=== PATIENT | male | born 1940 | race Caucasian/White ===

== ENCOUNTER 2018-08-27 10:36 | Emergency (ER) | payer MEDICARE, OTHER ==
[~2018-08-27] VITALS: Ht 180.3 cm; Wt 101.2 kg
[~2018-08-27 10:36] MED LIST: ASPI81CH PO; ASPI81EC PO; ATOR10; BACPOLTO30 TP; CEPH500 PO; CYCL10 PO; Celebrex200 MG PO; FURO40; FURO40 PO; GLIP10 PO; GLIPIZIDE; HYDMOR2 PO; HYDMOR4 PO; INDO25 PO; LISI20 PO; LISI5 PO; METF500; METF500 PO; METO10 PO; METO5A PO; METTREX2.5 PO; NIAC500; Norco 5-325 Ta1 EACH PO; PANT40; PIOG30 PO; POTA10T; POTA10T PO; POTCHL10ER PO; PRAV20 PO; PRED10 PO; PRED20 PO; SUCR1 PO; SUMA25 PO; UNK MED; Ultram50 MG PO; Zithromax250 MG PO
[2018-08-27 12:00] LABS: BASOPHILS ABSOLUTE AUTO 0.03 K/mm3 (0.00-0.23); BASOPHILS PERCENT AUTO 0 % (0-2); EOSINOPHILS ABSOLUTE AUTO 0.09 K/mm3 (0.00-0.68); EOSINOPHILS PERCENT AUTO 1 % (0-6); Hematocrit 46.4 % (37.0-53.0); Hemoglobin 14.7 g/dL (13.5-17.5); IMMATURE GRAN ABSOLUTE AUTO 0.15 K/mm3 (0.00-0.10); IMMATURE GRAN PERCENT AUTO 1 % (0-1); LYMPHOCYTES ABSOLUTE AUTO 1.19 K/mm3 (0.84-5.20); LYMPHOCYTES PERCENT AUTO 10 % (21-46); MONOCYTES PERCENT AUTO 10 % (4-13); Mean Corpuscular HGB 30.4 pg (26.0-34.0); Mean Corpuscular HGB Conc 31.7 g/dL (31.5-36.5); Mean Corpuscular Volume 96 fL (80-100); Mean Platelet Volume 11.1 fL (9.1-12.4); NEUTROPHILS ABSOLUTE AUTO 8.96 K/mm3 (1.96-9.15); NEUTROPHILS PERCENT AUTO 78 % (41-73); Platelet Count 82 K/mm3 (150-400); RDW Coefficient Variation 14.2 % (11.7-14.2); RDW Standard Deviation 49.6 fL (35.1-46.3); Red Blood Cell Count 4.83 M/mm3 (4.30-5.90); White Blood Cell Count 11.52 K/mm3 (4.00-11.30)
[2018-08-27 12:37] LABS: Albumin, Blood 3.7 g/dL (3.4-5.0); Albumin/Globulin Ratio 0.8 (0.8-1.8); Bilirubin, Total 0.4 mg/dL (0.1-1.0); Bun/Creatinine Ratio 21.8 (12.0-20.0); Calcium, Blood 8.9 mg/dL (8.5-10.1); Creatinine, Blood 1.24 mg/dL (0.60-1.20); Globulin, Blood 4.4 g/dL (2.2-4.0); Potassium, Blood 4.4 mmol/L (3.5-5.5); Total Protein, Blood 8.1 g/dL (6.4-8.2)
[2018-08-27] MEDS ORDERED: AMOX250 PO (12:57)
[2018-08-27] MEDS ORDERED: Ultram50 MG PO (13:36)
== END 2018-08-27 13:44 | disposition home or self-care (01) ==
LOC: ER 10:36
PROVIDERS: Physician Assistant
DX: R51 Headache (principal); Z88.8 Allergy status to other drugs, medicaments and biological substances; Z88.5 Allergy status to narcotic agent; Z79.899 Other long term (current) drug therapy; Z79.84 Long term (current) use of oral hypoglycemic drugs; E11.9 Type 2 diabetes mellitus without complications; F17.210 Nicotine dependence, cigarettes, uncomplicated
CPT/HCPCS: 36415; 70450; 71046; 80053; 85025; 99284-25

== ENCOUNTER 2018-08-31 13:39 | Inpatient (IN) | payer MEDICARE, OTHER ==
[~2018-08-31] VITALS: Ht 180.3 cm; Wt 98.4 kg
[~2018-08-31 13:39] MED LIST changes: +AMOX250 PO
[2018-08-31 15:21] LABS: BASOPHILS ABSOLUTE AUTO 0.04 K/mm3 (0.00-0.23); BASOPHILS PERCENT AUTO 1 % (0-2); EOSINOPHILS ABSOLUTE AUTO 0.05 K/mm3 (0.00-0.68); EOSINOPHILS PERCENT AUTO 1 % (0-6); Hematocrit 44.1 % (37.0-53.0); Hemoglobin 14.1 g/dL (13.5-17.5); IMMATURE GRAN ABSOLUTE AUTO 0.19 K/mm3 (0.00-0.10); IMMATURE GRAN PERCENT AUTO 2 % (0-1); LYMPHOCYTES ABSOLUTE AUTO 0.96 K/mm3 (0.84-5.20); LYMPHOCYTES PERCENT AUTO 12 % (21-46); MONOCYTES ABSOLUTE AUTO 0.55 K/mm3 (0.16-1.47); MONOCYTES PERCENT AUTO 7 % (4-13); Mean Corpuscular HGB 30.2 pg (26.0-34.0); Mean Corpuscular Volume 94 fL (80-100); Mean Platelet Volume 11.3 fL (9.1-12.4); NEUTROPHILS ABSOLUTE AUTO 6.37 K/mm3 (1.96-9.15); NEUTROPHILS PERCENT AUTO 78 % (41-73); Platelet Count 56 K/mm3 (150-400); RDW Coefficient Variation 14.2 % (11.7-14.2); RDW Standard Deviation 49.2 fL (35.1-46.3); Red Blood Cell Count 4.67 M/mm3 (4.30-5.90); White Blood Cell Count 8.16 K/mm3 (4.00-11.30)
[2018-08-31 15:31] LABS: Troponin I 0.175 ng/mL (0.000-0.040)
[2018-08-31 15:42] LABS: Alanine Aminotransfer (ALT/SGP 17 U/L (12-78); Albumin, Blood 3.6 g/dL (3.4-5.0); Albumin/Globulin Ratio 0.9 (0.8-1.8); Alk Phos 44 U/L (50-136); Anion Gap 9 mmol/L (6-16); Aspartate Aminotrans (AST/SGOT 69 U/L (12-37); Bilirubin, Total 0.4 mg/dL (0.1-1.0); Blood Urea Nitrogen 26 mg/dL (8-24); Bun/Creatinine Ratio 22.2 (12.0-20.0); CO2, Blood 24 mmol/L (21-32); Calcium, Blood 8.7 mg/dL (8.5-10.1); Chloride, Blood 106 mmol/L (98-108); Creatinine, Blood 1.17 mg/dL (0.60-1.20); Globulin, Blood 4.2 g/dL (2.2-4.0); Glomerular Filtration Rate >60 (60-); Glucose, Blood 140 mg/dL (70-99); Potassium, Blood 4.9 mmol/L (3.5-5.5); Sodium, Blood 139 mmol/L (136-145); Total Protein, Blood 7.8 g/dL (6.4-8.2)
--- NOTE | 2018-09-01 01:25 | NUR ---
*LATE ENTRY* 1954 HRS - RECEIVED HANDOFF REPORT FROM ED NURSE REINA PT WAS DC'D ON THURSDAY, WENT HOME ON TRAMADOL. PT BACK TODAY WITH CHEST PAIN (TROPONINS 0.175), SOB, AND WHEEZING. HX OF DIABETES, KNEE REPLACEMENTS, AND CAD. PT CAME FROM HOME, IS A&O X4, SHOULD BE INDEPENDENT (BUT ED HAD NOT HAD HIM STAND FOR THEM). CT W/CONTRAST SHOWED MASSES IN LUNGS, MAY NEED POSSIBLE BIOPSY LATER. PT DENIES PAIN. PT IS A FULL CODE. PT IS ON RA, PT IS ON TELEMETRY.
--- NOTE | 2018-09-01 03:34 | NUR ---
SHIFT SUMMARY PT IS VENTRICULAR PACED 100% AT 90 BPM, MONITORED BY PCU TELEMETRY. ADMITTED FOR CHEST PAIN (RESOLVED), SOB, WHEEZING, TROPONIN LEVELS WERE 0.175. CT W/CONTRAST SHOWED MASSES IN THE LUNGS (POSSIBLE EVAL FOR BIOPSY?) AND ENLARGED LYMPH NODES. PT IS A&O X4, AND STANDBY ASSIST FOR ME (DIZZYNESS), ON RA. PT IS ACHS - MED SS. HX OF DIABETES, KNEE REPLACEMENTS, AND CAD. PT FELL 2 DAYS AGO AND HAS SUBSEQUENT NECK PAIN, HE IS REFUSING FENTANYL AND PREFERS TYLENOL IF POSSIBLE. PT IS ON THE ADA/CARDIAC DIET. PT IS ON PLAVIX RX.
[2018-09-01 06:19] LABS: BASOPHILS ABSOLUTE AUTO 0.04 K/mm3 (0.00-0.23); BASOPHILS PERCENT AUTO 1 % (0-2); EOSINOPHILS ABSOLUTE AUTO 0.12 K/mm3 (0.00-0.68); EOSINOPHILS PERCENT AUTO 1 % (0-6); Hematocrit 42.4 % (37.0-53.0); Hemoglobin 13.9 g/dL (13.5-17.5); IMMATURE GRAN ABSOLUTE AUTO 0.21 K/mm3 (0.00-0.10); IMMATURE GRAN PERCENT AUTO 3 % (0-1); LYMPHOCYTES ABSOLUTE AUTO 1.88 K/mm3 (0.84-5.20); LYMPHOCYTES PERCENT AUTO 23 % (21-46); MONOCYTES ABSOLUTE AUTO 0.91 K/mm3 (0.16-1.47); MONOCYTES PERCENT AUTO 11 % (4-13); Mean Corpuscular HGB 30.5 pg (26.0-34.0); Mean Corpuscular HGB Conc 32.8 g/dL (31.5-36.5); Mean Corpuscular Volume 93 fL (80-100); Mean Platelet Volume 11.5 fL (9.1-12.4); NEUTROPHILS ABSOLUTE AUTO 5.13 K/mm3 (1.96-9.15); NEUTROPHILS PERCENT AUTO 62 % (41-73); NRBC ABSOLUTE 0.02 K/mm3 (0.00-0.02); NRBC Auto 0.2 /100 WBC (0.0-0.2); RDW Coefficient Variation 14.3 % (11.7-14.2); RDW Standard Deviation 48.5 fL (35.1-46.3); Red Blood Cell Count 4.55 M/mm3 (4.30-5.90); White Blood Cell Count 8.29 K/mm3 (4.00-11.30)
[2018-09-01 06:22] LABS: Platelet Count 49 K/mm3 (150-400)
[2018-09-01 06:27] LABS: International Normalized Ratio 1.19; Prothrombin Time Results 12.4 Sec (9.7-11.5)
[2018-09-01 06:32] LABS: Alanine Aminotransfer (ALT/SGP 16 U/L (12-78); Albumin, Blood 3.5 g/dL (3.4-5.0); Albumin/Globulin Ratio 0.9 (0.8-1.8); Alk Phos 41 U/L (50-136); Anion Gap 10 mmol/L (6-16); Aspartate Aminotrans (AST/SGOT 71 U/L (12-37); Bilirubin, Total 0.4 mg/dL (0.1-1.0); Blood Urea Nitrogen 26 mg/dL (8-24); Bun/Creatinine Ratio 21.8 (12.0-20.0); CHOL/HDL RATIO 5.2; CO2, Blood 26 mmol/L (21-32); Calcium, Blood 8.6 mg/dL (8.5-10.1); Chloride, Blood 105 mmol/L (98-108); Cholesterol 150 mg/dL (50-200); Creatinine, Blood 1.19 mg/dL (0.60-1.20); Globulin, Blood 3.9 g/dL (2.2-4.0); Glomerular Filtration Rate >60 (60-); Glucose, Blood 118 mg/dL (70-99); HDL Cholesterol 29 mg/dL (>39); LDL/HDL RATIO 2.8; Low Density Lipoprotein Chol 82 mg/dL (0-110); Magnesium, Blood 1.4 mg/dL (1.6-2.4); Potassium, Blood 4.3 mmol/L (3.5-5.5); Sodium, Blood 141 mmol/L (136-145); Total Protein, Blood 7.4 g/dL (6.4-8.2); Triglycerides 193 mg/dL (30-160); Very Low Density Lipoprot Chol 38 mg/dL (6-32)
--- NOTE | 2018-09-01 06:37 | NUR ---
CRITICAL VALUE NOTIFICATION NOTIFIED NIGHT HOSPITALIST OF CRITICAL LOW LAB VALUE FOR PLATELETS OF 49, DOWN FROM 56. NO NEW ORDERS GIVEN. CHARGE NURSE STATED THAT THIS VALUE IS LESS CONCERNING LONG H&H ARE AT ACCEPTABLE LEVELS. HGB IS 13.9 AND HCT IS 42. PT IS ASYMPTOMATIC AT THIS TIME (NOT BLEEDING EXCESSIVELY FROM LAB DRAWS).
--- NOTE | 2018-09-01 11:10 | NUR ---
1100 PATIENT STATED HE NEEDED TO GO HOME AND TAKE CARE OF AILING . DOCTOR UNABLE TO SAFELY DISCHARGE PATIENT DUE TO TROP LEVELS. NURSE AND DOCTOR WENT OVER THE CONSEQUENCES OF PATIENT NOT STAYING IN HOSPITAL. PATIENT STATED HE WAS AWARE BUT IS REFUSING TO STAY. STATED HE WILL FOLLOW UP AFTER IS TAKEN CARE OF. PATIENT WAS PLEASANT BUT ADAMANT ABOUT LEAVING NOW. IV REMOVED, NO SS OF INFECTION NOTED. PATIENT DRESSED SELF AND CALLED FOR RIDE.
== END 2018-09-01 11:33 | disposition left against medical advice (07) | DRG 204 ==
LOC: ER 13:39 → MEDS 18:10
PROVIDERS: Physician Assistant; ADMIT Internal Medicine
DX: R06.00 Dyspnea, unspecified (principal); R07.89 Other chest pain; R01.1 Cardiac murmur, unspecified; E11.9 Type 2 diabetes mellitus without complications; F17.210 Nicotine dependence, cigarettes, uncomplicated; R74.8 Abnormal levels of other serum enzymes; R91.8 Other nonspecific abnormal finding of lung field; Z79.84 Long term (current) use of oral hypoglycemic drugs; I49.5 Sick sinus syndrome; Z95.0 Presence of cardiac pacemaker; M19.90 Unspecified osteoarthritis, unspecified site; Z96.653 Presence of artificial knee joint, bilateral; I35.0 Nonrheumatic aortic (valve) stenosis; E78.00 Pure hypercholesterolemia, unspecified
CPT/HCPCS: 36415; 71046; 71260; 72040; 72070; 80053; 80061; 82947; 83036; 83735; 84484; 85025; 85610; 93005; 93010; 93306; 99285-25; Q9967

== ENCOUNTER 2018-09-01 16:05 | Inpatient (IN) | payer MEDICARE, OTHER ==
[~2018-09-01] VITALS: Ht 180.3 cm; Wt 103.6 kg
[2018-09-01 17:46] LABS: BASOPHILS ABSOLUTE AUTO 0.02 K/mm3 (0.00-0.23); BASOPHILS PERCENT AUTO 0 % (0-2); EOSINOPHILS ABSOLUTE AUTO 0.12 K/mm3 (0.00-0.68); EOSINOPHILS PERCENT AUTO 1 % (0-6); Hematocrit 41.4 % (37.0-53.0); Hemoglobin 13.6 g/dL (13.5-17.5); IMMATURE GRAN ABSOLUTE AUTO 0.18 K/mm3 (0.00-0.10); IMMATURE GRAN PERCENT AUTO 2 % (0-1); LYMPHOCYTES ABSOLUTE AUTO 1.72 K/mm3 (0.84-5.20); LYMPHOCYTES PERCENT AUTO 21 % (21-46); MONOCYTES ABSOLUTE AUTO 0.98 K/mm3 (0.16-1.47); MONOCYTES PERCENT AUTO 12 % (4-13); Mean Corpuscular HGB 30.4 pg (26.0-34.0); Mean Corpuscular HGB Conc 32.9 g/dL (31.5-36.5); Mean Corpuscular Volume 93 fL (80-100); Mean Platelet Volume 11.7 fL (9.1-12.4); NEUTROPHILS ABSOLUTE AUTO 5.28 K/mm3 (1.96-9.15); NEUTROPHILS PERCENT AUTO 64 % (41-73); NRBC ABSOLUTE 0.02 K/mm3 (0.00-0.02); NRBC Auto 0.2 /100 WBC (0.0-0.2); Platelet Count 52 K/mm3 (150-400); RDW Coefficient Variation 14.1 % (11.7-14.2); RDW Standard Deviation 47.9 fL (35.1-46.3); Red Blood Cell Count 4.47 M/mm3 (4.30-5.90)
[2018-09-01 18:03] LABS: Albumin, Blood 3.5 g/dL (3.4-5.0); Albumin/Globulin Ratio 0.9 (0.8-1.8); Bilirubin, Total 0.4 mg/dL (0.1-1.0); Bun/Creatinine Ratio 21.8 (12.0-20.0); Calcium, Blood 8.8 mg/dL (8.5-10.1); Creatinine, Blood 1.24 mg/dL (0.60-1.20); Globulin, Blood 3.9 g/dL (2.2-4.0); Potassium, Blood 4.2 mmol/L (3.5-5.5); Total Protein, Blood 7.4 g/dL (6.4-8.2); Troponin I 0.173 ng/mL (0.000-0.040)
--- NOTE | 2018-09-01 21:30 | NUR ---
PCU ADMIT PT BROUGHT TO PCU RM 12 BY SHARA FROM THE ER @ APPROX 2110. PT SOB. LUNG SOUNDS COARSE W/ WHEEZE T/O. SPO2 > 92% ON 2L NC. PT UNSTEADY, 1 PERSON SBA. PT STATES HAVING FALLEN RECENTLY D/T DIZZINESS. PT ORIENTED TO ROOM. INSTRUCTED TO USE CALL LIGHT FOR STAFF ASSIST OUT OF BED. CALL LIGHT IN REACH. BED ALARM ON. WILL CONTINUE TO MONITOR AND PROVIDE CARE.
--- NOTE | 2018-09-02 01:01 | NUR ---
PAIN MEDICATION PT STATES 9 LEFT UPPER ABDOMINAL RIB PAIN AND STATES "I'VE HAD THIS PAIN FOR A LONG TIME." PT STATES NOT TAKING ANYTHING FOR PAIN, THOUGH HE STATES TAKING A TRAMADOL AT HOME THAT HE STATES MADE HIM DIZZY AND FALL AT HOME PRIOR TO ADMISSION. WHEN ASKED PT ABOUT LIST OF ALLERGY MEDS THAT ARE PAIN MEDICATIONS PT STATES HIS REACTIONS TO THESE MEDS TO BE "I PASS OUT" AND "YOU DON'T WANT TO BE AROUND ME, I GET STUPID." PT REQUESTING HYDROMORPHONE FOR PAIN. CALL TO MD SIDDIQUI ABOUT PT'S PAIN INQUIRY W/ ORDER FROM MD SIDDIQUI FOR 15 MG PO KETOROLAC X1 TO SEE HOW PT TOLERATES IT. THIS NURSE EXPLAINED TO THE PT THE MD'S ORDER FOR KETOROLAC INSTEAD OF HYDROMORPHONE. PT REFUSED THE KETOROLAC. WHEN ASKING THE PT WHAT OTHER MEDICATIONS THE PT MIGHT BE WILLING TO TAKE FOR HIS PAIN HE RESPONDED AGAIN WITH "HYDROMORPHONE." PT STATES "I'LL MAYBE TRY THE KETOROLAC TOMORROW." WILL CONTINUE TO MONITOR AND PROVIDE CARE.
[2018-09-02 02:08] LABS: BASOPHILS ABSOLUTE AUTO 0.04 K/mm3 (0.00-0.23); BASOPHILS PERCENT AUTO 1 % (0-2); EOSINOPHILS ABSOLUTE AUTO 0.12 K/mm3 (0.00-0.68); EOSINOPHILS PERCENT AUTO 1 % (0-6); Hematocrit 41.4 % (37.0-53.0); Hemoglobin 13.3 g/dL (13.5-17.5); IMMATURE GRAN ABSOLUTE AUTO 0.24 K/mm3 (0.00-0.10); IMMATURE GRAN PERCENT AUTO 3 % (0-1); LYMPHOCYTES ABSOLUTE AUTO 1.88 K/mm3 (0.84-5.20); LYMPHOCYTES PERCENT AUTO 22 % (21-46); MONOCYTES ABSOLUTE AUTO 1.09 K/mm3 (0.16-1.47); MONOCYTES PERCENT AUTO 13 % (4-13); Mean Corpuscular HGB Conc 32.1 g/dL (31.5-36.5); Mean Corpuscular Volume 94 fL (80-100); Mean Platelet Volume 11.6 fL (9.1-12.4); NEUTROPHILS ABSOLUTE AUTO 5.05 K/mm3 (1.96-9.15); NEUTROPHILS PERCENT AUTO 60 % (41-73); RDW Standard Deviation 47.9 fL (35.1-46.3); Red Blood Cell Count 4.43 M/mm3 (4.30-5.90); White Blood Cell Count 8.42 K/mm3 (4.00-11.30)
[2018-09-02 02:12] LABS: Platelet Count 48 K/mm3 (150-400)
[2018-09-02 02:14] LABS: Albumin, Blood 3.4 g/dL (3.4-5.0); Anion Gap 10 mmol/L (6-16); Blood Urea Nitrogen 29 mg/dL (8-24); Bun/Creatinine Ratio 23.6 (12.0-20.0); CO2, Blood 25 mmol/L (21-32); Calcium, Blood 8.6 mg/dL (8.5-10.1); Chloride, Blood 107 mmol/L (98-108); Creatinine, Blood 1.23 mg/dL (0.60-1.20); Glomerular Filtration Rate >60 (60-); Glucose, Blood 133 mg/dL (70-99); Phosphorus, Blood 4.3 mg/dL (2.5-4.9); Potassium, Blood 4.2 mmol/L (3.5-5.5); Sodium, Blood 142 mmol/L (136-145)
--- NOTE | 2018-09-02 05:51 | NUR ---
SHIFT SUMMARY PT A&O X4. PT ON BEDREST W/ BATHROOM PRIVILEGES. BED ALARM ON, PT HAS HX OF FALLS. PT 1 PERSON SBA, C/O DIZZINESS WHEN UP. PLATELET COUNT LOW. RESULTS SHARED W/ MD SIDDIQUI THIS SHIFT W/ NO ORDERS GIVEN. MONITOR SHOWS SR/ST W/ PVC'S. MURMUR NOTED. LUNG SOUNDS COARSE W/ WHEEZE T/O. SPO2 > 92% ON 2L NC. PT SOB W/ ACTIVITY. PT NPO FOR STRESS TEST THIS AM. PT C/O L RIB PAIN, REQUESTING HYDROMORPHONE. ALTERNATIVE PAIN MEDICATION ORDERED BY MD, PT REFUSING ALTERNATIVE PAIN MED. VSS. WILL CONTINUE TO MONITOR AND PROVIDE CARE UNTIL REPORT OFF TO DAY SHIFT RN.
--- NOTE | 2018-09-02 13:50 | NUR ---
DEVICE CHECK DONE PER ORDER TO EVALUATE VENTRICULAR PACING AND ATTEMPT TO MINIMIZE VENTRICULAR PACING. ADEQUATE BATTERY STATUS. NORMAL ATRIAL AND VENTRICULAR SENSING AND CAPTURE. PRESENTING RHYTHM IS AsVp RATE 92 BPM. WITH VARYING LENGTHS OF AV BLOCK. STABLE ATRIAL AND VENTRICULAR LEAD IMPEDANCES AT 608 OHMS IN THE ATRIUM AND 776 IN THE VENTRICLE. P WAVE 4.8mV. R WAVE >25 mV.STABLE ATRIAL CAPTURE THRESHOLD .9V@.4ms. STABLE VENTRICULAR CAPTURE THRESHOLD .7V@.4ms. HISTOGRAMS SHOW Ap<1% Injection Molding Operator 95%. AT/AF EPISODES: 73. NSVT EPISODES: 103. INFORMATION CALLED TO DR. SMITH.
--- NOTE | 2018-09-02 14:49 | NUR ---
Update: Pt returned to room from stress test now. Dr. López at bedside.
--- NOTE | 2018-09-02 16:29 | NUR ---
Shift Summary No acute changes since initial shift assessment. VSS. In no apparent sign of distress. Pt is A&Ox4. Calling appropriately. Denies any more pain t/o the shift. Dr. López in to see pt today as well as Dr. Love. Per Dr. Love, we will wait for plan from pulminology first before deciding if pt will need an angiogram. Plan is to biopsy lung mass tomorrow. Pt currently resting in bed with call light within reach. Denies any further questions, complaints or requests at this time. Will continue to monitor until report is given to nickie BARNES.
--- NOTE | 2018-09-02 19:05 | NUR ---
Per nursing request, I met with Mr. Devine. It was explained to me he had several tumors suspicious of cancer. He was evasive regarding possible cancer dx. 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 For the past few years he has been caring for his , and he is primarily concerned for her. He did admit he greatest fear is leaving her. First, because of his love for her, and second, because he has not made arrangements for her care if "something were to happend to me." Throughout our conversation, he would begin to express concern/fear and then emotionally pull back. I did not push and we moved easily between stories from his work-life and worries about the future. He is listed as Buddhism, but admits to me he finds meaning in all Gnosticism denominations. He has not been religiously active lately. Our visit was interuppted when he became uncomfortable in his chair and then a friend arrived to visit. Mr. Devine will certainly benefit from Palliative Care and guidence in coming days. He seems to be moving in and out of denial, which is quite normal and self-preserving at this early stage. Rn Plastics services will remain available.
--- NOTE | 2018-09-03 04:10 | NUR ---
SHIFT SUMMARY PT A&O X4, CALM AND COOPERATIVE W/ A FLAT AFFECT. WHEN DISCUSSING THE PT'S CURRENT HEALTH FINDINGS AND DIAGNOSTIC TESTING TO COME W/ THE BIOPSY, THE PT STATES "IT'S NOT CANCER." PT INTERMITTENTLY UNCOMFORTABLE, C/O HEADACHE THAT WENT AWAY W/OUT MEDICATION, L HIP PAIN THAT HE ATTRIBUTED TO "SITTING IN THE CHAIR TOO LONG", AND LOWER BACK AND NECK PAIN THAT HE STATED BEING "FROM THE BED." PT TX'D W/ MEDICATION PER EMAR, REPOSITIONING, AND BLANKETS FROM THE WARMER. MONITOR SHOWS SR/ST, HR 90'S-110. LUNG SOUNDS COARSE W/ RHONCHI. SPO2 > 92% ON RA OR 2L NC DURING SHIFT. ARGATROBAN CONTINUES TO INFUSE PER ORDERS. PT UNABLE TO SLEEP THIS MORNING, SITTING UP IN CHAIR WATCHING TELEVISION. WHEN ADDRESSING PT'S CONCERNS FOR HIS HE STATES HIS NEIGHBOR WILL BE CHECKING ON HER AND DENIES CONCERN FOR HER CARE AT THIS TIME, STATING "HOLLY IS A GOOD GIRL. SHE'LL TAKE CARE OF HER. HER THOMAS IS OFF WORK TODAY TOO." WILL CONTINUE TO MONITOR AND PROVIDE CARE UNTIL REPORT OFF TO DAY SHIFT RN.
[2018-09-03 04:49] LABS: BASOPHILS ABSOLUTE AUTO 0.02 K/mm3 (0.00-0.23); BASOPHILS PERCENT AUTO 0 % (0-2); EOSINOPHILS ABSOLUTE AUTO 0.07 K/mm3 (0.00-0.68); EOSINOPHILS PERCENT AUTO 1 % (0-6); Hematocrit 39.4 % (37.0-53.0); Hemoglobin 12.8 g/dL (13.5-17.5); IMMATURE GRAN ABSOLUTE AUTO 0.34 K/mm3 (0.00-0.10); IMMATURE GRAN PERCENT AUTO 3 % (0-1); LYMPHOCYTES ABSOLUTE AUTO 1.27 K/mm3 (0.84-5.20); LYMPHOCYTES PERCENT AUTO 10 % (21-46); MONOCYTES ABSOLUTE AUTO 1.15 K/mm3 (0.16-1.47); MONOCYTES PERCENT AUTO 9 % (4-13); Mean Corpuscular HGB 30.7 pg (26.0-34.0); Mean Corpuscular HGB Conc 32.5 g/dL (31.5-36.5); Mean Corpuscular Volume 95 fL (80-100); Mean Platelet Volume 11.8 fL (9.1-12.4); NEUTROPHILS ABSOLUTE AUTO 9.62 K/mm3 (1.96-9.15); NEUTROPHILS PERCENT AUTO 77 % (41-73); NRBC ABSOLUTE 0.02 K/mm3 (0.00-0.02); NRBC Auto 0.2 /100 WBC (0.0-0.2); RDW Coefficient Variation 14.2 % (11.7-14.2); RDW Standard Deviation 48.7 fL (35.1-46.3); Red Blood Cell Count 4.17 M/mm3 (4.30-5.90); White Blood Cell Count 12.47 K/mm3 (4.00-11.30)
[2018-09-03 04:57] LABS: Platelet Count 40 K/mm3 (150-400)
[2018-09-03 05:05] LABS: Alanine Aminotransfer (ALT/SGP 23 U/L (12-78); Albumin, Blood 3.5 g/dL (3.4-5.0); Albumin/Globulin Ratio 0.9 (0.8-1.8); Alk Phos 41 U/L (50-136); Anion Gap 7 mmol/L (6-16); Aspartate Aminotrans (AST/SGOT 96 U/L (12-37); Bilirubin, Total 0.4 mg/dL (0.1-1.0); Blood Urea Nitrogen 41 mg/dL (8-24); Bun/Creatinine Ratio 36.6 (12.0-20.0); CO2, Blood 27 mmol/L (21-32); Calcium, Blood 8.9 mg/dL (8.5-10.1); Chloride, Blood 105 mmol/L (98-108); Creatinine, Blood 1.12 mg/dL (0.60-1.20); Glomerular Filtration Rate >60 (60-); Glucose, Blood 150 mg/dL (70-99); Potassium, Blood 4.5 mmol/L (3.5-5.5); Sodium, Blood 139 mmol/L (136-145); Total Protein, Blood 7.5 g/dL (6.4-8.2)
--- NOTE | 2018-09-03 09:10 | NUR ---
DEVICE INTERROGATION DONE PER ORDER TO MINIMIZW VENTRICULAR PACING. RHYTHM IQ PROGRAMMED ON. PACED AV DELAY 150ms-230ms. SENSED AV DELAY 130ms-200ms. sEARCH AV DELAY 300ms. SEARCH INTERVAL 32 CYCLES. INFORMATION GIVEN TO EDUCATIONAL TECHNOLOGY SPECIALIST AND PRIMARY RN.
--- NOTE | 2018-09-03 09:39 | NUR ---
Assumed Care: Assumed care of pt at approx 0700. VSS. In no apparent sign of distress. Pt is A&Ox4. Calling apapropriately. Denies any pain. See shift assessment for detailed assessment. Dr. Mo and Dr. Love at bedside this AM - per Dr. Mo and Dr. Love, okay to transfuse 1 unit of platelets d/t pt being protected with argatroban at this time to increase platelets for biopsy today w/consideration to HIT protocol. Pt has been NPO since 0600. Pt currently resting in bed with call light within reach. Denies any further questions, complaints or requests at this time. Will continue to monitor.
[2018-09-03 12:20] LABS: Mean Platelet Volume 10.7 fL (9.1-12.4); Platelet Count 64 K/mm3 (150-400)
--- NOTE | 2018-09-03 15:17 | NUR ---
Spiritual care visit conducted. Patient was lying in bed with , Nydia, bedside. I indroduced myself and explained the nature of my visit. Patient seemed somewhat closed off at first but once I understood his sense of humor and timing our visit went well. Patient and shared about their current struggles and I explored their rastafarian belief system. I provided emotional support and normalized their experience. Both patient and spouse displayed evidence of an elevated mood and voiced appreciation for the visit.
--- NOTE | 2018-09-03 19:45 | NUR ---
ASSUMED CARE PT SLEEPIGN IN ROOM COMFORTABLY. PER DAY SHIFT PT HAS BEEN WITHDRAWN FROM CONVERSATION, WITH OCCASIONAL IRRITATION AT STAFF. PT WAS SUPPOSED TO HAVE BIOPSY TODAY, WHICH WAS DELAYED D/T NEED TO DC BLOOD THINNERS. PT WILL HAVE SECOND PORTION OF STRESS TEST IN AM. RESP IS EVEN UNLABORED ON RA. SKIN IS PWD. PT DENIES PAIN AT THIS TIME. CALL LIGHT IS IN REACH.
--- NOTE | 2018-09-03 19:48 | NUR ---
Shift Summary No acute changes since initial shift assessment. VSS. In no apparent sign of distress. Pt is A&Ox4. Stress test cancelled today d/t conflict w/NPO status for biopsy. Approaching time for biopsy, notified by [facility] that pt will need to be off plavix for at least 5 days prior to biopsy. Notified Dr. Mo, Dr. Bond and Dr. Love. Per Dr. Love, cookieay to DC argatroban and plavix. Dr. Mo and Dr. Bond aware. Plan to complete second portion of stress test tomorrow, and possibly dc after that if cleared by cardiology and hospitalist and pt will follow-up as out pt for biopsy and with cardiology. Pt currently resting in bed with call light within reach. Denies any further questions, complaints or requests at this time. Will continue to marlen monzon report is given to nickie Butts.
--- NOTE | 2018-09-04 05:51 | NUR ---
SHIFT SUMMARY PT RESTING IN ROOM COMFORTABLY. PT SLEPT FROM SHIFT CHANGE TO 0200. NO ACUTE CHANGES IN STATUS SINCE ASSESSMENT. PT HAS BEEN AGGITATED SINCE WAKING, DEMANDING TO KOW WHY NPO STATUS. PT EDUCATED NPO STATUS IS FOR 0600 FOR SECOND PORTION OF STRESS TEST. PT EDUCATED ON TEST AND REASONS FOR NPO. PT REPORTS HASN'T SLEPT FOR 3 DAYS, AND JUST WANTS TO GO HOME. PT EDUCATED ON NEED [facility]. PT REPORTS UNDERSTANDING. PT DEVELOPED COUGH AT 0200, COUGH IS DRY AND HACKING. PT REPORTS SOME BLOOD TINGED SPUTUM. SKIN ID PWD. RESP EVEN UNLABORED ON 2L O2 FOR PT COMFORT. CALL LIGHT IN REACH. BED ALARM ON FOR SAFETY.
[2018-09-04] MEDS ORDERED: METO25 PO (15:45)
[2018-09-04 16:06] LABS: HEPARIN INDUCED PLATELET AB 0.343 OD (0.000-0.400)
--- NOTE | 2018-09-04 18:41 | NUR ---
PATIENT DISCHARGED TO HOME. INSTRUCTED TO FOLLOW UP THURSDAY FOR LABS AND THURSDAY FOR BIOPSY PER DR. MICHELLE. IMAGING FAXED PATIENT INFORMATION. SCHEDULING INSTRUCTED TO CALL PATIENT THURSDAY AND SCHEDULE FOR THURSDAY. IV ACCESS REMOVED. PATIENT INSTRUCTED TO NOT TAKE PLAVIX. NEW MEDICATIONS DISCUSSED WITH PATIENT. ALL QUESTIONS ANSWERED. ESCORTED OUT VIA WHEELCHAIR WITH INFECTION PREVENTION SPECIALIST
[2018-09-04] MEDS ORDERED: Metformin HCl1000 MG PO (22:57)
[2018-09-04] MEDS ORDERED: Lisinopril2.5 MG (22:59)
[2018-09-04] MEDS ORDERED: METO10 PO (22:59)
== END 2018-09-04 18:37 | disposition home or self-care (01) | DRG 182 ==
LOC: ER 16:05 → PCU 19:20
PROVIDERS: Emergency Medicine; Internal Medicine; Internal Medicine Critical Care Medicine; ADMIT Internal Medicine
DX: C34.90 Malignant neoplasm of unspecified part of unspecified bronchus or lung (principal); F17.210 Nicotine dependence, cigarettes, uncomplicated; E78.5 Hyperlipidemia, unspecified; I08.0 Rheumatic disorders of both mitral and aortic valves; D69.6 Thrombocytopenia, unspecified; M19.90 Unspecified osteoarthritis, unspecified site; R59.0 Localized enlarged lymph nodes; G47.33 Obstructive sleep apnea (adult) (pediatric); I44.30 Unspecified atrioventricular block; E11.40 Type 2 diabetes mellitus with diabetic neuropathy, unspecified; N18.2 Chronic kidney disease, stage 2 (mild); I12.9 Hypertensive chronic kidney disease with stage 1 through stage 4 chronic kidney disease, or unspecified chronic kidney disease; Z95.0 Presence of cardiac pacemaker; Z79.84 Long term (current) use of oral hypoglycemic drugs; E11.22 Type 2 diabetes mellitus with diabetic chronic kidney disease
CPT/HCPCS: 36415; 36430; 71045; 78452; 80053; 80069; 82947; 83735; 84484; 85025; 85027; 85049; 85730; 86022; 86900; 86901; 93005; 93010; 93017; 93280; 94640; 94760; 99285-25; A9500; J0706; J0883; J2405; J2785; J7050; P9035

== ENCOUNTER 2018-09-04 22:45 | Inpatient (IN) | payer MEDICARE, OTHER ==
[~2018-09-04] VITALS: Ht 180.3 cm; Wt 100.0 kg
[~2018-09-04 22:45] MED LIST changes: +METO25 PO
[2018-09-04] MEDS ORDERED: Metformin HCl1000 MG PO (22:57)
[2018-09-04] MEDS ORDERED: Lisinopril2.5 MG (22:59)
[2018-09-04] MEDS ORDERED: METO10 PO (22:59)
[2018-09-04 23:25] LABS: BASOPHILS ABSOLUTE AUTO 0.03 K/mm3 (0.00-0.23); BASOPHILS PERCENT AUTO 0 % (0-2); EOSINOPHILS ABSOLUTE AUTO 0.04 K/mm3 (0.00-0.68); EOSINOPHILS PERCENT AUTO 0 % (0-6); Hematocrit 30.7 % (37.0-53.0); Hemoglobin 9.9 g/dL (13.5-17.5); IMMATURE GRAN ABSOLUTE AUTO 0.46 K/mm3 (0.00-0.10); IMMATURE GRAN PERCENT AUTO 4 % (0-1); LYMPHOCYTES ABSOLUTE AUTO 1.51 K/mm3 (0.84-5.20); LYMPHOCYTES PERCENT AUTO 14 % (21-46); MONOCYTES PERCENT AUTO 11 % (4-13); Mean Corpuscular HGB 30.6 pg (26.0-34.0); Mean Corpuscular HGB Conc 32.2 g/dL (31.5-36.5); Mean Corpuscular Volume 95 fL (80-100); NEUTROPHILS ABSOLUTE AUTO 7.98 K/mm3 (1.96-9.15); NEUTROPHILS PERCENT AUTO 71 % (41-73); NRBC ABSOLUTE 0.04 K/mm3 (0.00-0.02); NRBC Auto 0.4 /100 WBC (0.0-0.2); RDW Coefficient Variation 14.5 % (11.7-14.2); RDW Standard Deviation 49.2 fL (35.1-46.3); Red Blood Cell Count 3.24 M/mm3 (4.30-5.90); White Blood Cell Count 11.22 K/mm3 (4.00-11.30)
[2018-09-04 23:29] LABS: Mean Platelet Volume 13.1 fL (9.1-12.4); Platelet Count 34 K/mm3 (150-400)
[2018-09-04 23:39] LABS: Alanine Aminotransfer (ALT/SGP 26 U/L (12-78); Albumin, Blood 3.5 g/dL (3.4-5.0); Alk Phos 46 U/L (50-136); Anion Gap 10 mmol/L (6-16); Aspartate Aminotrans (AST/SGOT 109 U/L (12-37); Bilirubin, Total 0.5 mg/dL (0.1-1.0); Blood Urea Nitrogen 55 mg/dL (8-24); Bun/Creatinine Ratio 46.2 (12.0-20.0); CO2, Blood 26 mmol/L (21-32); Calcium, Blood 9.1 mg/dL (8.5-10.1); Chloride, Blood 101 mmol/L (98-108); Creatinine, Blood 1.19 mg/dL (0.60-1.20); Globulin, Blood 3.6 g/dL (2.2-4.0); Glomerular Filtration Rate >60 (60-); Glucose, Blood 145 mg/dL (70-99); Potassium, Blood 5.2 mmol/L (3.5-5.5); Sodium, Blood 137 mmol/L (136-145); Total Protein, Blood 7.1 g/dL (6.4-8.2); Troponin I 0.051 ng/mL (0.000-0.040)
[2018-09-05 01:27] LABS: International Normalized Ratio 1.21; Prothrombin Time Results 12.6 Sec (9.7-11.5)
--- NOTE | 2018-09-05 05:16 | NUR ---
SHIFT SUMMARY ARRIVED TO MEDICAL FLOOR @ 0153. TRANSFERED FROM WHEELCHAIR TO BED WITH 1 ASSIST; NOTING THAT HE WAS DIZZY WITH MOVEMENT. ORINETED TO ROOM AND CALL SYSTEM. A/O X4, ABLE TO MAKE NEEDS KNOWN. COOPERATIVE WITH CARE. CALLS AND ANSWERS QUESTIONS APPORPIRATELY. C/O CHRONIC BACK PAIN; NO ORDERS FOR PAIN MEDICATION; STATED TAKES MEDICATION FOR PAIN AT HOME. REFUSED MORNING LABS. NO REST THIS SHIFT; WIDE AWAKE WATCHING TV. NO ACUTE CHANGES AT THIS TIME. BED IN LOWEST POSITION. CALL LIGHT IN PLACE. WCTM. REPORT TO MAGALI BARNES.
--- NOTE | 2018-09-05 05:53 | NUR ---
0553 REFERRAL PLACED TO PALLIATIVE CARE VIA [facility]
[2018-09-05 10:26] LABS: BASOPHILS ABSOLUTE AUTO 0.02 K/mm3 (0.00-0.23); BASOPHILS PERCENT AUTO 0 % (0-2); EOSINOPHILS ABSOLUTE AUTO 0.08 K/mm3 (0.00-0.68); EOSINOPHILS PERCENT AUTO 1 % (0-6); Hematocrit 24.8 % (37.0-53.0); Hemoglobin 7.9 g/dL (13.5-17.5); IMMATURE GRAN ABSOLUTE AUTO 0.46 K/mm3 (0.00-0.10); IMMATURE GRAN PERCENT AUTO 4 % (0-1); LYMPHOCYTES ABSOLUTE AUTO 2.04 K/mm3 (0.84-5.20); LYMPHOCYTES PERCENT AUTO 19 % (21-46); MONOCYTES ABSOLUTE AUTO 1.36 K/mm3 (0.16-1.47); MONOCYTES PERCENT AUTO 13 % (4-13); Mean Corpuscular HGB 29.7 pg (26.0-34.0); Mean Corpuscular HGB Conc 31.9 g/dL (31.5-36.5); Mean Corpuscular Volume 93 fL (80-100); Mean Platelet Volume 12.7 fL (9.1-12.4); NEUTROPHILS ABSOLUTE AUTO 6.91 K/mm3 (1.96-9.15); NEUTROPHILS PERCENT AUTO 64 % (41-73); NRBC ABSOLUTE 0.09 K/mm3 (0.00-0.02); NRBC Auto 0.8 /100 WBC (0.0-0.2); RDW Coefficient Variation 14.4 % (11.7-14.2); RDW Standard Deviation 49.1 fL (35.1-46.3); Red Blood Cell Count 2.66 M/mm3 (4.30-5.90); White Blood Cell Count 10.87 K/mm3 (4.00-11.30)
[2018-09-05 10:45] LABS: Platelet Count 32 K/mm3 (150-400)
[2018-09-05 11:51] LABS: Hematocrit 25.5 % (37.0-53.0)
--- NOTE | 2018-09-05 12:10 | NUR ---
PATIENT HAS COMPLAINED OF SIGNIFICANT PAIN IN HIS BACK THIS MORNING. SPOKE WITH HIS DAUGHTER, HE HAS CHRONIC BACK PAIN BUT NORMALLY TAKES A DOSE OF TYLENOL AND HE IS FEELING BETTER FOR AT LEAST 8 HOURS. STATES THAT THIS BACK PAIN IS NEW THIS MORNING, PATIENT RATES THE PAIN 10/10 [address]. SPOKE WITH DR. DOAN WHO PRESCRIBED FENTANYL. WHEN I WENT IN TO GIVE THE PATIENT FENTANYL HE DID NOT LOOOK GOOD. PATIENT SEEMED PALE, DIAPHORETIC, CLAMMY. HE STATES THAT HE WAS STARTING TO FEEL DIZZY AND GETTING NAUSEOUS. PULLED ANOTHER SET OF VITALS AND PATIENTS BLOOD PRESSURE HAD DROPPED TO 96/51. PATIENT HAD A PULSE RATE OF 121, AND A RESPIRATION RATE OF 28. GAVE PATIENT THE DOSE OF FENTANYL AND CALLED THE DOCTOR, ASKED HER TO COME SEE THE PATIENT. CAME AND ASSESSED THE PATIENT AND ASKED FOR TRANSFER TO PCU, BLOOD TRANSFUSION, PICC LINE INSERTION, AND FOR THE PATIENT TO SEE GI. PATIENT WAS BEING TRANFERRED AND STATED HE WOULD MEET HIM DOWN IN PCU.
--- NOTE | 2018-09-05 17:56 | NUR ---
SUMMARY PT ARRIVED TO UNIT FROM MED FLOOR AT MIDDAY. A&0X3. SBP LOW 90S UPON ARRIVAL TO UNIT AND PT TACHY IN 110S. PT HAS REC'D 1 UNIT PRBCS AND IS NOW REC'G PLATELETS. VSS. PT C/O OF BACK PAIN. MEDICATED PER ORDERS FOR PAIN. PAIN NOW 02/16. STOOD AT BEDSIDE W/FWW FOR ATTENDS CHANGE. INCONTINENT OF URINE. HAS SIGNIFICANT BRUISING TO RUE AND SCATTERED BRUISING TO CHEST AND LUE. HAS HAD NO BMS SINCE ARRIVAL TO UNIT. CALL LIGHT IN REACH.
[2018-09-05 18:14] LABS: Hematocrit 26.5 % (37.0-53.0); Hemoglobin 8.7 g/dL (13.5-17.5)
--- NOTE | 2018-09-06 00:05 | NUR ---
PHYSICIAN CONTACTED- PT REPORTING PAIN OF 7/10 ON PAIN SCALE IN HIS BACK WITHIN ONE HOUR OF PAIN MEDICATION ADMINISTRATION AND REPORTS THAT TYLENOL DOES NOT RELIEVE PAIN. PT REPORTS THAT AT HOME, HE USES HEATING PAD IN ADDITION TO PAIN MEDS AT HOME. WITH EXTENSIVE ALLERGIES LISTED, PT REPORTS THAT HE CAN TAKE HYDROMORPHONE WITHOUT REACTION. DR LUGO CONTACTED AND ORDERS FOR PO HYDROMORPHONE ORDERED, WELL K-PAD FOR HEAT THERAPY. WILL INPUT ORDERS AND CONTINUE WITH MONITORING.
[2018-09-06 00:50] LABS: Hematocrit 25.9 % (37.0-53.0); Hemoglobin 8.2 g/dL (13.5-17.5)
--- NOTE | 2018-09-06 01:40 | NUR ---
PT AGITATION PRIMARY RN CALLED TO ROOM FROM OFF THE FLOOR BY COVERING RN TO DE-ESCALATE PATIENT. PT WANTING TO SIT "IN THE LOBBY OF THE DEPARTMENT". AFTER INFORMING PATIENT THAT THERE IS NO LOBBY IN PCU, AGITATION INCREASED. OFFERED TO ASSIST PATIENT TO CHAIR IN ROOM FOR CHANGE IN POSITION- PT DENIES WANT AND IS INSISTANT ON "SITTING IN THE LOBBY" AND STATING THAT HE WANTS TO GO HOME. PT UPDATED ON HIS CURRENT STATUS AND THE SAFETY OF HIM RETURNING HOME AGAINST MEDICAL ADVICE. PT DE-ESCALATES ENOUGH TO AGREE TO STAY IN BED AND ROOM IF HE CAN TAKE SCD'S OFF. PT EDUCATED ON RISKS OF REMOVING SCD'S- PT STATES UNDERSTANDING AND THAT HE WOULD LIKE TO REMOVE. PT THEN PROVIDED WITH MOUTH SWABS DUE TO NPO STATUS AND OFFERED PAIN MEDICATION FOR COMFORT WHICH HE DENIES AT THIS TIME. BED ALARM SET- PT STATES THAT HE DOESN'T WANT IT ON, EDUCATED ON ALARM BEING SET FOR HIS SAFETY- PT AGREES TO HAVE IT SET. WILL CONTINUE TO MONITOR. BED IN LOW POSITION, CALL LIGHT IN REACH. BED ALARM SET FOR SAFETY.
--- NOTE | 2018-09-06 06:43 | NUR ---
SHIFT SUMMARY- PT HAS REMAINED AOX4 THROUHGOUT SHIFT. VSS. MOSTLY COOPERATIVE WITH CARE. PT HAS NOT BECOME AGITATED SINCE INITIAL INSTANCE, BUT DOES EXHIBIT SOME ANXIETY ABOUT HAVING PROCEDURE EARLY AND GOING HOME. PT EDUCATED ON DAY SURGERY PROCEDURES AND INFORMED THAT HE WILL BE NOTIFIED SOON POSSIBLE WITH PROCEDURE TIME. PT CONTINUES TO HAVE HARSH COUGH WITH PRODUCTION OF THIN, WHITE FOAMY SECRETIONS THAT HE SPITS INTO [place]. NO OTHER CHANGES NOTED FROM INITIAL ASSESSMENT. WILL CONTINUE TO MONITOR AND REPORT TO ONCOMING RN. BED IN LOW POSITION, CALL LIGHT IN REACH.
--- NOTE | 2018-09-06 06:50 | NUR ---
PHYSICIAN CONTACTED- CONTACTED DR SAUCEDO ABOUT PATIENT PROCEDURE AND TIME FRAME. PHYSICIAN STATED THAT PROCEDURE TO TAKE PLACE THIS AFTERNOON AND CLEAR LIQUID BREAKFAST WAS OK, BUT NOTHING TO EAT OR DRINK AFTER. WILL INPUT ORDER AND CONTINUE MONITORING.
[2018-09-06 07:34] LABS: Hematocrit 24.2 % (37.0-53.0); Hemoglobin 7.8 g/dL (13.5-17.5)
--- NOTE | 2018-09-06 09:21 | NUR ---
PCU DAYSHIFT ASSUMED CARE OF PT APPROX. 0700. PT A&O X4 AT THIS TIME. ASSESSMENT COMPLETED. VITALS SIGNS STABLE. PT REPROTS BACK PAIN AT THIS TIME. PT HAS GENERALIZED BRUSIING AND BRUISING ON BOTH ARMS. PRN PAIN MEDICATION GIVEN PER EMAR FOR THIS. PT CURRENTLY SINUS TACHYCARDIA IN 100'S VIA BOWLING ALLEY MANAGER. DISCUSSED WITH PT ABOUT TREATMETNS AND PROCEDURES. PT TO UNDERGO SCOPE THIS AFTERNOON. PT HAD CLEAR LIQUID BREAKFAST AND REMAINS NPO SINCE THIS. PT AGREES AT THIS TIME TO STAY HERE UNTIL PROCEDURE THIS AFTERNOON. PT ABLE TO SIT AT BEDSIDE FOR BREAKFAST. PT CALLED AND WAS GIVEN UPDATE ON PT AND PLAN FOR PROCEDURE. BED IN LOW POSITION, BED ALARM ON, CALL LIGHT IN REACH AND PT DENIES ANY NEEDS AT THIS TIME.
--- NOTE | 2018-09-06 09:38 | NUR ---
NOTE PT CONTINUES TO REFUSE SCD'S AT THIS TIME. EDUCATED PT ON IMPORTANCE OF SCD'S AND RISKS OF NOT WEARING THEM. PT STATES HE IS AWARE OF THIS AND DOES NOT WANT THME ON AT THIS TIME.
[2018-09-06 10:45] LABS: BASOPHILS ABSOLUTE AUTO 0.02 K/mm3 (0.00-0.23); BASOPHILS PERCENT AUTO 0 % (0-2); EOSINOPHILS ABSOLUTE AUTO 0.08 K/mm3 (0.00-0.68); EOSINOPHILS PERCENT AUTO 1 % (0-6); Hemoglobin 7.6 g/dL (13.5-17.5); IMMATURE GRAN PERCENT AUTO 5 % (0-1); LYMPHOCYTES ABSOLUTE AUTO 1.63 K/mm3 (0.84-5.20); LYMPHOCYTES PERCENT AUTO 14 % (21-46); MONOCYTES ABSOLUTE AUTO 1.27 K/mm3 (0.16-1.47); MONOCYTES PERCENT AUTO 11 % (4-13); Mean Corpuscular HGB Conc 31.7 g/dL (31.5-36.5); Mean Corpuscular Volume 95 fL (80-100); Mean Platelet Volume 11.2 fL (9.1-12.4); NEUTROPHILS ABSOLUTE AUTO 7.69 K/mm3 (1.96-9.15); NEUTROPHILS PERCENT AUTO 68 % (41-73); NRBC Auto 0.9 /100 WBC (0.0-0.2); Platelet Count 54 K/mm3 (150-400); RDW Coefficient Variation 15.9 % (11.7-14.2); Red Blood Cell Count 2.53 M/mm3 (4.30-5.90); White Blood Cell Count 11.29 K/mm3 (4.00-11.30)
[2018-09-06 10:49] LABS: Albumin, Blood 2.9 g/dL (3.4-5.0); Bilirubin, Total 0.5 mg/dL (0.1-1.0); Bun/Creatinine Ratio 52.4 (12.0-20.0); Calcium, Blood 8.1 mg/dL (8.5-10.1); Creatinine, Blood 1.26 mg/dL (0.60-1.20); Globulin, Blood 2.9 g/dL (2.2-4.0); Potassium, Blood 4.9 mmol/L (3.5-5.5); Total Protein, Blood 5.8 g/dL (6.4-8.2)
--- NOTE | 2018-09-06 15:12 | NUR ---
PT HAS POWERGLIDE TO VALDO PATENT
--- NOTE | 2018-09-06 15:14 | NUR ---
PT FROM PCU 4 ROOM. PT IS A&0X3. STATED PAIN IN LOWER NECK. STATES 7/10 PAIN AT THIS TIME DAILY HAS PAIN. IS IN ROOM WILL WAIT FOR PT THERE. PT IS CURRENTLY ON 2L O2. DENIES USE AT HOME. WHEN RN ATTEMPTS TO TITRATE PT OFF 02 SAT DROP BELOW 90%. DR GONZALEZ HAS SEEN PT, RN ASSESSED LUNG GUIDO TIGHT THROUGH OUT, STATES TO GIVE DUONEB. PT HAS SOUNDED OUT OF BREATH SINCE ARRIVAL. DENIES ANY MEDS TAKEN FOR RESP OR ANY HX OF RESP PX. PT IS PLEASANT AND COOPERATIVE.
--- NOTE | 2018-09-06 15:30 | NUR ---
DAYSURGERY DAY SURGERY STAY IN TO TAKE PT TO PROCEDURE APPOX. 1440. PT STABLE AT THIS TIME WITH NO S/SX OF ACUTE DISTRESS. PT WAS TRANSFERED FROM BED TO [facility] WHICH HE WAS THEN TRANSFERED TO DAY SURGERY WITH. PT REMAINS IN THE ROOM AT THIS TIME. WILL WATCH FOR RETURN OF PT.
--- NOTE | 2018-09-06 15:50 | NUR ---
09/06/[address] HERE TO PROVIDE ANESTHESIA CARE, PLEASE SEE ANESTHESIA RECORD. History, Chart, Medications and Allergies reviewed before start of procedure. PATIENT CONFIRMS NPO STATUS AND AGREES WITH SCHEDULED PROCEDURE. MONITOR INTACT WITH CONTINUOUS PULSE OXIMETRY AND INTERMITTENT BP. O2 VIA N/C INTACT THROUGHOUT SEDATION/PROCEDURE VIA POM AT [address]ING IN [address].
--- NOTE | 2018-09-06 17:18 | NUR ---
Initial Visit: Pt is alert, oriented, sitting up in bed. , Nydia, is seated beside in chair. Pt has just had procedures with GI, he will be on clear liquid diet. Pt asked when he would be able to have food, I instructed that the doctor determines when to give him solid food after he is able to tolerate clears. Pt verbalizes understanding. Pt reports 10/10 pain with headache. He has these chronically. He states that sometimes they just go away. Notified nursing of pain and request for medication. Reviewed planning with the couple. Their goal is to proceed with cancer treatments if it is found that this mass is cancer. They share that the biopsy is scheduled for . Confirmed FULL code with patient. They are not interested in having a conversation about this as indicated by the patient yelling "full!" when attempt was made to discuss this further. Palliative care to remain available.
--- NOTE | 2018-09-06 19:47 | NUR ---
SHIFT SUMMARY PT PLEASANT, COOPERATIVE AND USES CALL LIGHT APPROPRIATELY. PT REMAINS A&OX4, ASSESSMENT FINDINGS REMAIN UNCHANGED. VITALS SIGNS STABLE, ALTHOUGH PT HAD INCREASED HEART RATE AT TIMES. PT IRRITATIBLE THIS MORNING. PT HAD INCREASED PAIN INTERMITENTLY PRN PAIN MEDICATION GIVEN PER EMAR. PT ABLE TO GET PAIN MEDICATION THIS MORNING FOR PAIN AND ABLE TO RELAX AND GET SOME REST AFTER THIS. PT AT BEDSIDE AROUND LUNCH TIME. PT REMAINS PLEASANT AND COOPERATIVE AFTER GETTING SOME REST AND AT BEDSIDE. PT TAKEN FOR PROCEDURE BY DAY SURGERY STAFF. PT ARRIVED BACK TO UNIT APPROX. 1600. PT STABLE AND NO S/SX OF ACUTE DISTRESS AT THIS TIME. VITAL SIGNS STABLE. BEGAN MONITORING PER POST OP PROCEDURES. NO N/V. PT ABLE TO HAVE CLEAR LIQUID DIET PER PMD ORDERS AT THIS TIME. PT TOLERATED THIS WELL. BED IN LOW POSITION, BED ALARM ON, CALL LIGHT IN REACH AND PT DENIES ANY NEEDS AT THIS TIME. WILL CONTINUE TO MONITOR UNTIL HANDOFF TO NIGHTSHIFT RN.
[2018-09-07 04:06] LABS: BASOPHILS ABSOLUTE AUTO 0.02 K/mm3 (0.00-0.23); BASOPHILS PERCENT AUTO 0 % (0-2); EOSINOPHILS PERCENT AUTO 1 % (0-6); Hematocrit 22.7 % (37.0-53.0); Hemoglobin 7.2 g/dL (13.5-17.5); IMMATURE GRAN ABSOLUTE AUTO 0.54 K/mm3 (0.00-0.10); IMMATURE GRAN PERCENT AUTO 5 % (0-1); LYMPHOCYTES ABSOLUTE AUTO 1.86 K/mm3 (0.84-5.20); LYMPHOCYTES PERCENT AUTO 17 % (21-46); MONOCYTES ABSOLUTE AUTO 1.35 K/mm3 (0.16-1.47); MONOCYTES PERCENT AUTO 12 % (4-13); Mean Corpuscular HGB 30.4 pg (26.0-34.0); Mean Corpuscular HGB Conc 31.7 g/dL (31.5-36.5); Mean Corpuscular Volume 96 fL (80-100); Mean Platelet Volume 11.4 fL (9.1-12.4); NEUTROPHILS ABSOLUTE AUTO 7.36 K/mm3 (1.96-9.15); NEUTROPHILS PERCENT AUTO 66 % (41-73); NRBC ABSOLUTE 0.17 K/mm3 (0.00-0.02); NRBC Auto 1.5 /100 WBC (0.0-0.2); RDW Coefficient Variation 15.6 % (11.7-14.2); RDW Standard Deviation 53.5 fL (35.1-46.3); Red Blood Cell Count 2.37 M/mm3 (4.30-5.90); White Blood Cell Count 11.23 K/mm3 (4.00-11.30)
[2018-09-07 04:15] LABS: Platelet Count 47 K/mm3 (150-400)
[2018-09-07 04:19] LABS: Anion Gap 7 mmol/L (6-16); Blood Urea Nitrogen 50 mg/dL (8-24); Bun/Creatinine Ratio 41.3 (12.0-20.0); CO2, Blood 27 mmol/L (21-32); Chloride, Blood 107 mmol/L (98-108); Creatinine, Blood 1.21 mg/dL (0.60-1.20); Glomerular Filtration Rate >60 (60-); Glucose, Blood 163 mg/dL (70-99); Potassium, Blood 4.8 mmol/L (3.5-5.5); Sodium, Blood 141 mmol/L (136-145)
[2018-09-07 04:25] LABS: BAND PERCENT MAN 1 % (0-8); BASOPHILS PERCENT MAN 0 % (0-2); EOSINOPHILS PERCENT MAN 0 % (0-6); LYMPHOCYTES ABSOLUTE MAN 2.02 K/mm3 (0.84-5.20); LYMPHOCYTES PERCENT MAN 18 % (21-46); METAMYELOCYTE ABSOLUTE MAN 0.22 K/mm3 (0.00-0.00); METAMYELOCYTE PERCENT MAN 2 % (0-0); MONOCYTES ABSOLUTE MAN 1.23 K/mm3 (0.16-1.47); MONOCYTES PERCENT MAN 11 % (4-13); NEUTROPHILS ABSOLUTE MAN 7.74 K/mm3 (1.96-9.15); SEG NEUTROPHILS PERCENT MAN 68 % (41-73); TOTAL CELLS COUNTED 100
--- NOTE | 2018-09-07 06:01 | NUR ---
SHIFT SUMMARY- PT HAS REMAINED AOX4 THROUGHOUT SHIFT. VSS. PLEASANT AND COOPERATIVE WITH CARE THROUGHOUT THE NIGHT. PT REMAINS ON BEDREST THROUGHOUT THE SHIFT, DOES AGREE TO OCCASIONAL TURNING TO MAINTAIN SKIN INTEGRITY. PT CONTINUES TO REFUSE SCD'S EVEN AFTER EDUCATION PROVIDED ON RISKS OF REFUSAL. O2 SATS HAVE REMAINED >90% ON 2L VIA NASAL CANNULA, PT DOES REMAIN TACHYPNEIC BUT DENIES FEELING SHORT OF BREATH. MEDICATED MULTIPLE TIMES FOR PAIN THROUGHOUT THE NIGHT THAT DECREASES WITH ORDERED MEDICATIONS. PT REMAINS INCONTINENT OF URINE, ATTENDS IN PLACE. NO OTHER CHANGES FROM INTIIAL ASSESSMENT. WILL CONTINUE TO MONITOR AND REPORT TO ONCOMING RN. BED IN LOW POSITION, CALL LIGHT IN REACH. BED ALARM SET FOR SAFETY.
--- NOTE | 2018-09-07 19:45 | NUR ---
END OF SHIFT PT HAS HAD 3 UNITS OF BLOOD, VSS, PT HAS HAD NO CHANGES TO THE ASSESSMENT, PT ABLE TO AMBULTE TO THE CHAIR AND BEDSIDE COMMODE
[2018-09-08 05:05] LABS: Hematocrit 28.6 % (37.0-53.0); Hemoglobin 9.4 g/dL (13.5-17.5); Mean Corpuscular HGB 30.4 pg (26.0-34.0); Mean Corpuscular HGB Conc 32.9 g/dL (31.5-36.5); NRBC ABSOLUTE 0.55 K/mm3 (0.00-0.02); NRBC Auto 3.7 /100 WBC (0.0-0.2); Platelet Count 59 K/mm3 (150-400); RDW Coefficient Variation 15.1 % (11.7-14.2); RDW Standard Deviation 49.7 fL (35.1-46.3); Red Blood Cell Count 3.09 M/mm3 (4.30-5.90)
[2018-09-08 05:07] LABS: Mean Corpuscular Volume 93 fL (80-100)
[2018-09-08 05:25] LABS: Anion Gap 9 mmol/L (6-16); Blood Urea Nitrogen 44 mg/dL (8-24); Bun/Creatinine Ratio 41.1 (12.0-20.0); CO2, Blood 27 mmol/L (21-32); Calcium, Blood 8.4 mg/dL (8.5-10.1); Chloride, Blood 100 mmol/L (98-108); Creatinine, Blood 1.07 mg/dL (0.60-1.20); Glomerular Filtration Rate >60 (60-); Glucose, Blood 168 mg/dL (70-99); Potassium, Blood 4.5 mmol/L (3.5-5.5); Sodium, Blood 136 mmol/L (136-145)
--- NOTE | 2018-09-08 06:05 | NUR ---
SHIFT SUMMARY- PT HAS REMAINED AOX4 THROUGHOUT SHIFT. VSS. COOPERATIVE WITH CARE. CONTINUES TO AMBULATE WITH STANDBY ASSIST. PT CONTINUES TO COUGH AND MOAN VERY LOUDLY STATING "I AM TRYING TO THROW UP BECAUSE I HAVE GAS", DENIES THAT HE IS NAUSEOUS, BUT REPORTS ABDOMINAL DISCOMFORT THAT RELIEVES WITH BELCHING AND FLATUS. PT REMAINS INCONTINENT OF URINE THROUGHOUT NIGHT BUT IS AGREEABLE TO RESTROOM ASSISTANCE. O2 SATS HAVE REMAINED >90% ON 2L VIA NASAL CANNULA, DESATURATES TO HIGH 80'S WHEN ON RA. DENIES SHORTNESS OF BREATH OR CHEST PAIN. MEDICATED ONCE FOR BACK PAIN THROUGHOUT SHIFT THAT RELIEVES WITH ORDERED MEDCIATIONS. NO OTHER CHANGES FROM INITIAL ASSESSMENT, WILL CONTINUE TO MONITOR AND REPORT TO ONCOMING RN. BED IN LOW POSITION, CALL LIGHT IN REACH. BED ALARM SET FOR SAFETY
--- NOTE | 2018-09-08 13:48 | NUR ---
PT TRANSFERED PT TRANSFERED FROM PCU IN STABLE CONDITION. PT CURRENTLY RESTING IN BED. WILL CONTINUE TO MONITOR. FAMILY AT BEDSIDE
--- NOTE | 2018-09-08 16:54 | NUR ---
SHIFT SUMMARY NO CHANGES IN ASSESSMENT AT THIS TIME. PT MEDICATED WITH DILADID & TYLENOL FOR PAIN IN HIS BACK & L LEG. PT MIN ASSIST WITH MOBILITY & INC OF URINE. VSS. PT A&O THIS SHIFT. WILL CONTINUE TO MONITOR UNTIL TURNOVER IS COMPLETE.
[2018-09-09 05:15] LABS: Hematocrit 24.6 % (37.0-53.0); Hemoglobin 7.9 g/dL (13.5-17.5); Mean Corpuscular HGB 29.4 pg (26.0-34.0); Mean Corpuscular HGB Conc 32.1 g/dL (31.5-36.5); Mean Corpuscular Volume 91 fL (80-100); Mean Platelet Volume 12.2 fL (9.1-12.4); NRBC ABSOLUTE 0.58 K/mm3 (0.00-0.02); NRBC Auto 3.8 /100 WBC (0.0-0.2); RDW Coefficient Variation 14.9 % (11.7-14.2); RDW Standard Deviation 47.2 fL (35.1-46.3); Red Blood Cell Count 2.69 M/mm3 (4.30-5.90); White Blood Cell Count 15.34 K/mm3 (4.00-11.30)
[2018-09-09 05:40] LABS: Platelet Count 33 K/mm3 (150-400)
[2018-09-09 05:53] LABS: Anion Gap 9 mmol/L (6-16); Blood Urea Nitrogen 49 mg/dL (8-24); Bun/Creatinine Ratio 47.6 (12.0-20.0); CO2, Blood 28 mmol/L (21-32); Calcium, Blood 8.4 mg/dL (8.5-10.1); Chloride, Blood 99 mmol/L (98-108); Creatinine, Blood 1.03 mg/dL (0.60-1.20); Glomerular Filtration Rate >60 (60-); Glucose, Blood 185 mg/dL (70-99); Potassium, Blood 4.7 mmol/L (3.5-5.5); Sodium, Blood 136 mmol/L (136-145)
--- NOTE | 2018-09-09 07:12 | NUR ---
feeling nausea, tried tylenol, refused zofran, passed on to day shift during walking rounds, call light in reach, 2L via nc, saline locked able to get up with assist.
[2018-09-09 13:08] LABS: Mean Platelet Volume 11.1 fL (9.1-12.4); Platelet Count 70 K/mm3 (150-400)
--- NOTE | 2018-09-09 16:12 | NUR ---
PT RETURNED FROM CT GUIDED BIOPSY OR R LUNG. BANDAID C/D/I. PT REPORTS DIFFICULTY TAKING DEEP BREATHE. LUNGS WITH AIR MOVEMENT, WHEEZES IN ALL LOBES HAVE INCREASED SINCE THIS AM. DR. TSAI NOTIFIED, RECIEVED ORDERS FOR PRN ALBUTEROL NEBS. RT IN WITH PT AT THIS TIME.
--- NOTE | 2018-09-09 17:14 | NUR ---
SHIFT SUMMARY. A&OX4, ONE ASSIST WITH FWW TO CHAIR, BED ALARM ON FOR SAFETY. PT HAS HAD NO BM THIS SHIFT. DAILY MIRALAX GIVEN LATE PT WAS NPO FOR PROCEDURE. PT IS INCONTINENT OF URINE. PT REPORTS BREATHING HAS IMPROVED SINCE FIRST ALBUTEROL NEB, WHEEZING HAS DECREASED. CONTINUES WITH 2L O2 NC. PT REPORTS BACK AND NECK PAIN THIS AFTERNOON, PRN PO DILAUDID GIVEN PT DID NOT HAVE RELIEF FROM APAP. NO COMPLICATIONS OBSERVED FROM CT GUIDED BIOPSY.
[2018-09-09 20:01] LABS: Hematocrit 20.7 % (37.0-53.0); Hemoglobin 6.7 g/dL (13.5-17.5); Mean Corpuscular HGB 30.2 pg (26.0-34.0); Mean Corpuscular HGB Conc 32.4 g/dL (31.5-36.5); Mean Corpuscular Volume 93 fL (80-100); Mean Platelet Volume 11.7 fL (9.1-12.4); NRBC ABSOLUTE 1.22 K/mm3 (0.00-0.02); NRBC Auto 7.2 /100 WBC (0.0-0.2); RDW Coefficient Variation 14.9 % (11.7-14.2); RDW Standard Deviation 48.1 fL (35.1-46.3); Red Blood Cell Count 2.22 M/mm3 (4.30-5.90)
[2018-09-09 20:23] LABS: Platelet Count 49 K/mm3 (150-400)
[2018-09-09 20:43] LABS: BAND PERCENT MAN 1 % (0-8); BASOPHILS PERCENT MAN 0 % (0-2); EOSINOPHILS ABSOLUTE MAN 0.34 K/mm3 (0.00-0.68); EOSINOPHILS PERCENT MAN 2 % (0-6); LYMPHOCYTES PERCENT MAN 10 % (21-46); METAMYELOCYTE ABSOLUTE MAN 0.51 K/mm3 (0.00-0.00); METAMYELOCYTE PERCENT MAN 3 % (0-0); MONOCYTES ABSOLUTE MAN 0.51 K/mm3 (0.16-1.47); MONOCYTES PERCENT MAN 3 % (4-13); MYELOCYTE ABSOLUTE MAN 0.34 K/mm3 (0.00-0.00); MYELOCYTE PERCENT MAN 2 % (0-0); SEG NEUTROPHILS PERCENT MAN 79 % (41-73); TOTAL CELLS COUNTED 100
--- NOTE | 2018-09-09 21:02 | NUR ---
PT TO IMAGING FOR CT OF CHEST W/ CONTRAST.
--- NOTE | 2018-09-10 01:10 | NUR ---
ASSUMED PT CARE AT 2242 PT ARRIVED ON UNIT VIA MEDICAL FLOOR BED. PT ALERT AND ORIENTED AND ABLE TO FOLLOW COMMANDS. PT GRUNTING WITH HIS BREATHING AND MOANING IN PAIN. PT HOLDING HIS CHEST AND STATED HE WAS EXPERIENCING 10/10 CHEST PAIN THAT FELT LIKE STABBING PAIN IN NATURE THAT WAS ALSO RADIATING DOWN HIS LEFT ARM. PT STATED HIS CHEST PAIN WAS WORSE WITH INSPIRATION. PT TRANSFERRED OVER TO ICU BED AND HOOKED UP TO MONITORS WITH A FULL SET OF VITALS OBTAINED. BP 87/62; OXYGEN SATURATIONS 96% ON 3L O2 VIA NC. HR 119. PT HAS A MIDLINE TO RIGHT UPPER ARM AND A 20G TO LEFT UPPER ARM. NS TKO. 25MCG PRN FENTANYL ADMINISTERED PER ORDERS, WELL 2MG PO DILAUDID ADMINSITERED; EFFECTIVE FOR PT'S CHEST PAIN. NEW PAIN LEVEL 2/10. LUNG SOUNDS: EXPIRATORY WHEEZING NOTED T/O ALL LOBES WITH INSPIRATORY CRACKLES NOTED TO BILATERAL LOWER LOBES. SINUS TACHYCARDIA WITH PAC'S NOTED. PACEMAKER/AICD NOTED TO LEFT UPPER CHEST; SET TO VENTRICULAR PACE AT 90. PT HAD A PUNCTURE SITE TO RIGHT PECTORALIS MUSCLE FROM BIOPSY THAT WAS PERFORMED EARLIER IN THE DAY WITH A BANDAID COVERING SITE; BANDAID REMOVED TO ASSESS SITE; DARK PURPLE/BLUE BRUISING NOTED; NO DRAINAGE. NO REDNESS, WARMTH, OR TENDERNESS NOTED TO SITE. BRUISING NOTED ALL OVER BODY SECONDARY TO THROMBOCYTOPENIA. PT HAS EDEMA NOTED TO BLE AND BUE. PT WAS NOTED TO HAVE LEATHERY TYPE SKIN TO BILATERAL INNER ANKLES WITH FAINT TIBIAL PULSES ASSESSED. ONE UNIT OF PRBC'S WAS STARTED AT 2307 WITH VS BEING TAKEN Q15 MINUTES FOR THE FIRST HOUR; AFTER 30 MINUTES INFUSION RATE WAS INCREASED FROM 75MLS/HR TO 100MLS/HR; AFTER 45 MINUTES THE INFUSION RATE WAS INCREASED AGAIN TO 125MLS/HR; AND AFTER ONE HOUR THE INFUSION RATE WAS INCREASED AND STAYED AT 150MLS/HR. PT APPEARS COMFORTABLE AT THIS TIME WITH NO C/O PAIN OR DISCOMFORT. RESTING WELL. CALL LIGHT IS WITHIN REACH.
--- NOTE | 2018-09-10 01:46 | NUR ---
LATE ENTRY 2244 AT APPROX 1920 THIS EVENING I CAME TO PT'S ROOM ON HEARING HIM CALL OUT THAT HE WAS IN PAIN. WHEN ENTERING THE ROOM PT COMPLAINED OF STABBING 7/10 PAIN IN HIS CHEST AROUND THE AREA OF HIS HEART. PT ALSO COMPLAINED OF PAIN IN L ARM. VITALS WERE TAKEN AND A RAPID RESPONSE WAS CALLED. HOSPITALIST GREGORIO YO WAS ON DUTY AND ORDERED A CBC, FLUIDS, AND EKG. CBC RESULS SHOWED LOW H&H, LOW PLATELETS, AND HIGH WHITE COUNT. VITALS WERE TAKEN REPEATEDLY AND SHOWED LOW BP'S AND INCREASAED O2 REQUIREMENTS. A CT CHEST WAS OREDERED. ON RETURNING TO ROOM PT AGAIN VOICED SEVERE CHEST PAIN AND HIS BP FELL TO 88/47, HR 121, POX 97 ON 3LNC. PRBC'S WERE OREDERED AND PT WAS OREDERED TO TRANSFER TO ICU. REPORT CALLED TO CHUCK BARNES AT 2229. AND PT WAS TAKEN TO ICU ROOM 14.
[2018-09-10 05:59] LABS: Hematocrit 22.2 % (37.0-53.0); Hemoglobin 7.2 g/dL (13.5-17.5); Mean Corpuscular HGB 30.6 pg (26.0-34.0); Mean Corpuscular HGB Conc 32.4 g/dL (31.5-36.5); Mean Corpuscular Volume 95 fL (80-100); Mean Platelet Volume 12.5 fL (9.1-12.4); NRBC ABSOLUTE 1.81 K/mm3 (0.00-0.02); NRBC Auto 10.6 /100 WBC (0.0-0.2); RDW Coefficient Variation 14.6 % (11.7-14.2); RDW Standard Deviation 48.6 fL (35.1-46.3); Red Blood Cell Count 2.35 M/mm3 (4.30-5.90); White Blood Cell Count 17.12 K/mm3 (4.00-11.30)
[2018-09-10 06:14] LABS: Platelet Count 38 K/mm3 (150-400)
[2018-09-10 06:21] LABS: BAND PERCENT MAN 4 % (0-8); BASOPHILS PERCENT MAN 0 % (0-2); EOSINOPHILS PERCENT MAN 0 % (0-6); LYMPHOCYTES ABSOLUTE MAN 2.91 K/mm3 (0.84-5.20); LYMPHOCYTES PERCENT MAN 17 % (21-46); MONOCYTES ABSOLUTE MAN 0.68 K/mm3 (0.16-1.47); MONOCYTES PERCENT MAN 4 % (4-13); NEUTROPHILS ABSOLUTE MAN 13.52 K/mm3 (1.96-9.15); SEG NEUTROPHILS PERCENT MAN 75 % (41-73); TOTAL CELLS COUNTED 100
--- NOTE | 2018-09-10 06:22 | NUR ---
END OF SHIFT SUMMARY PT HAS SLEPT MOST OF NIGHT. ONE UNIT OF PRBC'S TRANSFUSED OVER 2-3 HOURS; PT TOLERATED TRANSFUSION WELL. NS TKO. NO MORE C/O CHEST PAIN; ONE DOSE OF PRN FENTANYL 25MCG APPEARED EFFECTIVE. PT DID STATE THAT HE HAS A HISTORY OF CHRONIC BACK PAIN AND HE IS GENERALLY AT 7/10 PAIN LEVEL. PT APPEARS ALERT AND ORIENTED, BUT IS OCCASSIONALLY CONFUSED AND FORGETFUL OF WHERE HE IS AT. LUNG SOUNDS REMAIN DIMINISHED T/O WITH EXPIRATORY WHEEZES T/O NOTED AND INSPIRATORY CRACKLES NOTED TO BILTERAL LOWER LOBES. PT COUGHED ONCE AND PRODUCED THICK, BLOOD TINGED SPUTUM PT HAS REMAINED IN SINUS TACH WITH MULTIPLE PAC'S AND PVC'S. PT CONTINUES ON 3L OF OXYGEN VIA NC WITH OXYGEN SATURATIONS MAINTAINING GREATER THAN 91%. PT HAS BEEN INCONTINENT OF URINE X3 THIS SHIFT. ATTENDS MANAGEMENT AND SKIN CARE PERFORMED EACH TIME. PT IS RESTING COMFORTABLY IN BED AT THIS TIME. WILL CONTINUE TO MONITOR FOR ANY DISTRESS OR PAIN.
[2018-09-10 06:25] LABS: Albumin, Blood 2.6 g/dL (3.4-5.0); Bilirubin, Total 0.8 mg/dL (0.1-1.0); Bun/Creatinine Ratio 47.8 (12.0-20.0); Calcium, Blood 7.9 mg/dL (8.5-10.1); Creatinine, Blood 1.36 mg/dL (0.60-1.20); Globulin, Blood 2.7 g/dL (2.2-4.0); Potassium, Blood 4.9 mmol/L (3.5-5.5); Total Protein, Blood 5.3 g/dL (6.4-8.2)
--- NOTE | 2018-09-10 07:06 | NUR ---
ASSUMED CARE OF PT. PT IS SLEEPING SOUNDLY AT THIS TIME. WILL ALLOW PT TO SLEEP IN AT THIS TIME.
--- NOTE | 2018-09-10 07:40 | NUR ---
Pt is awake but very confused. Pt does not know his name, does not know where he's at. Pt keeps on repeating the words what this nurse says. Pt complaints he is in pain but is dorwsy. Garbled speech. Blood pressure anywhere from 70s to low 100s systolic.
--- NOTE | 2018-09-10 09:25 | NUR ---
0857-spoke with Dr. Hagan regarding pt's severe chest pain, and pt's mentation and labile blood pressure.
--- NOTE | 2018-09-10 10:04 | NUR ---
Spoke with [facility] Palliative RN. Pt has chronic pain. Pt states his comfortable level of pain is 7/10. Pt was medicated with tylenol and lidocaine. Spoke with patient's regarding pt's mentation and pain complaints.
--- NOTE | 2018-09-10 13:00 | NUR ---
PT STARTED COMPLAINING OF SEVERE CHEST PAIN. PT STATING. BLOOD PRESSURE ON THE 80S. DR. TSAI WAS NOTIFIED, ORDERS RECEIVED.
--- NOTE | 2018-09-10 14:20 | NUR ---
Spiritual care visit conducted. Patient was yelling when I came near the room and as I entered the room I introduced myself and patient said, "So what!" As I talked to the patient he calmed down and I was able to build therapeutic alliance. Patient softened his tone and demeanor. I provided a calming presence, anxiety containment and prayer. Patient displayed evidence of reduced stress.
--- NOTE | 2018-09-10 14:49 | NUR ---
pt sitting up in bed. aggitated and maoaning and calling out. He states pain is 10 out of 10. wants to sit straight up but it is painfull. Keeps shifiting positions. pt states stabbing pain to left abdomen and mid chest. Review of hypotensiona dn low CBC blood counts with nursing. Pt has had previous conversations with staff about code status. Advised family coming in today. Dr. Nair was in to see patient. Review on ventilatory stress and pain with Hospitalist. Pt at risk for failure due to ventilatory fatigue. Reivew of CT scan. Awaiting Biopsy report. Pt unable to turn or shift in beds. moderate ventilatory stress. only wants sips of water. Will review with physicians prognosis and ability to tolerate treatment, if treatment will be curative or palliative. Will attemtpt to get family to assist with decision making.
--- NOTE | 2018-09-10 15:00 | NUR ---
PT WOKE UP AGITATED. PULLING HIS BLOOD PRESSURE CUFF, LINES. PT STATED " I AM HAVING A HEART ATTACK" PT COMPLAINED AGAIN OF SEVERE CHEST PAIN. PT WAS ABLE TO SLEEP AFTER 2ND DOSE OF FENTANYL @ 1326. CALMED PATIENT DOWN. MEDICATED PT WITH DILAUDID FOR PAIN.
--- NOTE | 2018-09-10 15:45 | NUR ---
FAMILY AT BEDSIDE. UPDATED THEM OF PATIENT'S STATUS.
--- NOTE | 2018-09-10 16:00 | NUR ---
PT SEEMED TO BE IN GOOD SPIRITS WHILE FAMILY IS IN THE ROOM. PT HAS LESS COMPLAINTS OF PAIN.
--- NOTE | 2018-09-10 16:40 | NUR ---
DR. REID AT BEDSIDE. EVALUATING PT. HE WAS ABLE TO TALK TO THE FAMILY.
--- NOTE | 2018-09-10 18:04 | NUR ---
Met briefly with family for uspportive conversation. Asked if Dr. Nair had reviewed plan of care. They do not know plans they are focused on test results. Briefly introduced care planning and treatment and pt repiroatory stress. They were not responsive to conversation. pt alert at times but fatigued some bobbing of head. unable to lift legs and minimal ability to move his arams. pt wants to sit up but cant get comfortable for ventilation and comfort. wants to sip water. pt kps score is 30%. and further decline suggest hospice care pt high risk for compomised airway and ventilation. At this time pt continues to want full treatment. Pt high risk intuabtion due to disease process.
--- NOTE | 2018-09-10 18:08 | NUR ---
SHIFT SUMMARY: PT HAS BEEN COMPLAINING OF CHEST PAIN TO THE LEFT ALL DAY. PT HAS RECEIVED 2 DOSES OF HYDROMORPHONE & FENTANYL, A DOSE TYLENOL AND LIDOCAINE PATCH. PT HAS BEEN MOSTLY CONFUSED WITH SOME ORIENTATION AT TIMES. PT HAS RECEIVED 1 UNIT OF PLT PHERESIS, 2ND UNIT OF PRBC STILL INFUSING AT THIS TIME. TOLERATING FULL LIQUID DIET. NO BM NOTED YET. PT IS INCONTINENT OF URINE. EKG WAS DONE WHEN PT WAS COMPLAINING OF CHEST PAIN. BLOOD PRESSURE FROM 70s TO LOW 100s. DR. TSAI IS AWARE.
--- NOTE | 2018-09-10 19:00 | NUR ---
ASSUMED CARE ASSUMED CARE OF PATIENT AT THIS TIME. SLEEPING WHEN UNDISTURBED. MONITOR SHOWS ST, RATE 110-115. BP STABLE. O2 SATS 92-94% ON 3.5L NC. RESPIRATIONS EVEN AND UNLABORED AT REST. ATTENDS IN PLACE D/T INCONTINENCE. 2ND UNIT PRBC INFUSING.
--- NOTE | 2018-09-10 20:00 | NUR ---
ASSESSMENT PT AWAKE AND MOANING. DENIES C/O PAIN WHEN ASKED. ORIENTED TO SELF, PLACE, FOLLOWING DIRECTIONS. CONFUSED CONVERSATION. SPEECH IS CLEAR, BUT REPETITVE. ANSWERS "OKAY, OKAY" TO MOST EVERYTHING. KARLA, 3MM. GENERAL WEAKNESS NOTED. SYSTOLIC HEART MURMUR NOTED. INCONTINENT OF URINE. PRBC INFUSION COMPLETE AT THIS TIME. SEE SHIFT ASSESSMENT FOR FULL ASSESSMENT.
--- NOTE | 2018-09-11 06:17 | NUR ---
SHIFT SUMMARY NO ACUTE CHANGES DURING NOC. PT CONTINUES TO HAVE REPETITIVE CONVERSATION AND MOANS/CALLS OUT FREQUENTLY. PT IS IRRITABLE AND ANGRY AT TIMES. OCCASIONALLY REFUSES CARE AND PULLS OFF BP CUFF, SAT PROBE. CONTINUES WITH C/O FREQUENT BACK PAIN- MEDICATED WITH FENTANYL 25MCG IV Q2-3H DURING NOC AND DILAUDID 2MG PO X 1 WITH RELIEF NOTED. FREQUENT REPOSITIONING AND BACK RUBS GIVEN, WELL. VSS T/O SHIFT. MONITOR SHOWS ST WITH OCCASIONAL PVCs, PACs. INCONTINENT OF URINE- ATTENDS IN PLACE. REFUSING PAS AT THIS TIME. WILL REPORT TO DAY SHIFT RN WHEN AVAILABLE.
--- NOTE | 2018-09-11 07:51 | NUR ---
ASSUMED CARE OF PT. PT IS AWAKE. ORIENTED AT TIMES CONFUSED AT TIMES. PT IS MOANING. STATED HE'S IN PAIN. PT WAS MEDICATED WITH DILAUDID. FOLLOWING COMMANDS.
[2018-09-11 08:26] LABS: Hematocrit 23.5 % (37.0-53.0); Hemoglobin 7.7 g/dL (13.5-17.5); Mean Corpuscular HGB 31.6 pg (26.0-34.0); Mean Corpuscular HGB Conc 32.8 g/dL (31.5-36.5); Mean Corpuscular Volume 96 fL (80-100); Mean Platelet Volume 11.5 fL (9.1-12.4); NRBC ABSOLUTE 2.12 K/mm3 (0.00-0.02); NRBC Auto 10.8 /100 WBC (0.0-0.2); RDW Coefficient Variation 15.4 % (11.7-14.2); RDW Standard Deviation 50.4 fL (35.1-46.3); Red Blood Cell Count 2.44 M/mm3 (4.30-5.90); White Blood Cell Count 19.67 K/mm3 (4.00-11.30)
[2018-09-11 08:31] LABS: Platelet Count 28 K/mm3 (150-400)
[2018-09-11 08:43] LABS: Alanine Aminotransfer (ALT/SGP 23 U/L (12-78); Albumin, Blood 2.6 g/dL (3.4-5.0); Albumin/Globulin Ratio 0.9 (0.8-1.8); Alk Phos 74 U/L (50-136); Anion Gap 7 mmol/L (6-16); Aspartate Aminotrans (AST/SGOT 197 U/L (12-37); Bilirubin, Total 0.7 mg/dL (0.1-1.0); Blood Urea Nitrogen 69 mg/dL (8-24); CO2, Blood 28 mmol/L (21-32); Calcium, Blood 8.1 mg/dL (8.5-10.1); Chloride, Blood 102 mmol/L (98-108); Creatinine, Blood 1.21 mg/dL (0.60-1.20); Globulin, Blood 2.8 g/dL (2.2-4.0); Glomerular Filtration Rate >60 (60-); Glucose, Blood 239 mg/dL (70-99); Magnesium, Blood 1.9 mg/dL (1.6-2.4); Potassium, Blood 4.6 mmol/L (3.5-5.5); Sodium, Blood 137 mmol/L (136-145); Total Protein, Blood 5.4 g/dL (6.4-8.2)
[2018-09-11 08:48] LABS: BAND PERCENT MAN 2 % (0-8); BASOPHILS PERCENT MAN 0 % (0-2); EOSINOPHILS PERCENT MAN 0 % (0-6); LYMPHOCYTES ABSOLUTE MAN 2.16 K/mm3 (0.84-5.20); LYMPHOCYTES PERCENT MAN 11 % (21-46); METAMYELOCYTE ABSOLUTE MAN 0.78 K/mm3 (0.00-0.00); METAMYELOCYTE PERCENT MAN 4 % (0-0); MONOCYTES ABSOLUTE MAN 1.18 K/mm3 (0.16-1.47); MONOCYTES PERCENT MAN 6 % (4-13); NEUTROPHILS ABSOLUTE MAN 15.53 K/mm3 (1.96-9.15); SEG NEUTROPHILS PERCENT MAN 77 % (41-73); TOTAL CELLS COUNTED 100
--- NOTE | 2018-09-11 09:00 | NUR ---
DR. MICHELLE CAME BY AND TALKED TO THE FAMILY REGARDING BIOPSY RESULT AND PROGNOSIS.
--- NOTE | 2018-09-11 09:30 | NUR ---
DR. TSAI AT BEDSIDE. TALKED TO THE FAMILY WELL REGARDING PT'S POOR PROGNOSIS.
--- NOTE | 2018-09-11 11:00 | NUR ---
PT AND FAMILY DECIDED TO MAKE PT COMFORT CARE.
--- NOTE | 2018-09-11 11:48 | NUR ---
Pt is moaning in bed, has repetitive speech, "help me, help me, that hurts, that hurts." Tell patient that we [staff] are doing all we can to help with pain and suffering. He is telling me, "whatever it takes, whatever it takes." Family is in waiting area of ICU. I meet them there and explain my position in the hospital. They have been told by doctors that there is nothing more to do. Reviewed comfort care, booklet given Considering Comfort Care and 11th Hour. Explain benefit of better pain control, reduced invasive care (vitals, labs). Counseled on change in goals. They are ready and agree to comfort care. Pt is alone in the room as the family gathers themselves. Pt is still calling out. Instructed patient to take deep breaths; he does so and he is able to speak in conversational style after pain med is given. Foot and hand rub to reduce stress and pain level. He relaxes and tells me that he needs a new body. Advised that he can receive medications to control his pain, he states that he is glad. Reviewed with him that he is at end of life stage, he replies, "I know." Discussed a new plan of care that is for comfort. He is agreeable to this and tells me to hurry because he hurts. Call placed to Dr. Hagan. Permission to place comfort care orders. Discussed with nurse, Travis Cho. She requests fentanyl patch; she states fentanyl has been most effective for the patient. Dilaudid does not help, she reports. Fentayl patch ordered, discontinued dilaudid on pt's profile. Increased dose of fentayl IV to 25-50mcg q 2 hours for best coverage if needed for breakthrough pain. Will check back with patient for symptoms. Will remain available.
--- NOTE | 2018-09-11 14:40 | NUR ---
PT'S WAS NOTIFIED REGARDING POSSIBILITY OF TRANSFER TO MEDICAL FLOOR. INQUIRED WITH REGARDING MORPHINE ALLERGY. PT HAS STATED HE IS ALLERGIC TO MORPHINE AFTER RECEIVING IT. MORPHINE WAS NOT IN PT'S ALLERGY LIST BEFORE HE RECEIVED MORPHINE. STATES THAT PT GETS "HALLUCINATIONS" WITH MORPHINE. NO RASH OR DIFFICULTY BREATHING WITH MORPHINE. MORPHINE WAS ADDED TO PT'S ALLERGY LIST. DR. TSAI WAS NOTIFIED REGARDING THIS.
--- NOTE | 2018-09-11 16:34 | NUR ---
1615-PT WAS TRANSFERED TO ROOM 347. REPORT GIVEN TO ERIN Stringer RN. FAMILY WAS NOTIFIED REGARDING THE TRANSFER AND ROOM NUMBER.
--- NOTE | 2018-09-11 16:54 | NUR ---
pt to room from icu at 1615. settled to bed. talked with and children. medicated for anx. follow. changed. clean and dry at this time. bed in low position, call lite in reach, bed alarm on for safety
--- NOTE | 2018-09-11 18:00 | NUR ---
PT HERE ON CC. MOANING OCCATIONALLY, GAVE ATIVAN. CALMED SOME. CONTINUE TO MONITOR. FAMILY HAS BEEN IN SINCE TRANSFER. RECENTLY LEFT FOR HOME FOR TONITE. NO OTHER CONCERNS AT THIS TIME. BED IN LWO POSITIN, ALL LITE IN REACH, BED ALARM ON FOR SAFETY
--- NOTE | 2018-09-11 18:50 | NUR ---
PT RESTING. BREATHING REGULARLY, 24/MIN. EYES CLOSED. NO MOANING. NO DISTRESS NOTED.
--- NOTE | 2018-09-12 03:38 | NUR ---
09/12/18 0246 This screenplay writer entered room to check in on how pt ws resting. Pt color changed and no respiratory effort noted. Pt checked for corotid pulse and listened for heartbeat. None found. Pt pronounced at 0247. Charge Nurse Jeny BARNES notified. Call to Pt's made, she did not answer, message left. CAll to daughter Viola made and she was notified of fathers passing. called this screenplay writer and she was notified of Jims passing. states she would like pastoral care and that they will be in to say goodbye to patient. They are unsure at this time what home they wish. Belongings in bag at bedside. Will continue to assist pt family as needed.
--- NOTE | 2018-09-12 04:19 | NUR ---
Called n at [facility] to provide bereavement halfway house counselor and prayer for family. They have selected [facility] for arrangements.
--- NOTE | 2018-09-12 06:01 | NUR ---
09/12/18 0505 Family in room and supported by clergy. Family took home belongings. [employer] mortuary from [place] removed body at 0505.
== END 2018-09-12 02:47 | DRG 377 ==
LOC: ER 22:45 → MEDS 22:46 → PCU 09-05 01:53 → MEDS 09-05 01:56 → PCU 09-05 12:01 → MEDS 09-05 14:07 → ICUW 09-05 14:07 → PCU 09-05 14:08 → MEDS 09-08 13:16 → ICUW 09-09 22:37 → MEDS 09-11 16:27
PROVIDERS: Emergency Medicine; Internal Medicine; Nurse Practitioner Acute Care; Student in an Organized Health Care Education/Training Program; ADMIT Hospitalist
PROC: 30243R1 Transfusion of Nonautologous Platelets into Central Vein, Percutaneous Approach (ICD-10-PCS; 2018-09-05)
PROC: 30243N1 Transfusion of Nonautologous Red Blood Cells into Central Vein, Percutaneous Approach (ICD-10-PCS; 2018-09-05)
PROC: 05HY33Z Insertion of Infusion Device into Upper Vein, Percutaneous Approach (ICD-10-PCS; 2018-09-05)
PROC: 0DJD8ZZ Inspection of Lower Intestinal Tract, Via Natural or Artificial Opening Endoscopic (ICD-10-PCS; principal; 2018-09-06 14:30)
PROC: 0W3P8ZZ Control Bleeding in Gastrointestinal Tract, Via Natural or Artificial Opening Endoscopic (ICD-10-PCS; 2018-09-06 14:30)
PROC: 30243R1 Transfusion of Nonautologous Platelets into Central Vein, Percutaneous Approach (ICD-10-PCS; 2018-09-07)
PROC: 30243N1 Transfusion of Nonautologous Red Blood Cells into Central Vein, Percutaneous Approach (ICD-10-PCS; 2018-09-07)
PROC: 0BBC3ZX Excision of Right Upper Lung Lobe, Percutaneous Approach, Diagnostic (ICD-10-PCS; 2018-09-09)
PROC: 30243R1 Transfusion of Nonautologous Platelets into Central Vein, Percutaneous Approach (ICD-10-PCS; 2018-09-09)
PROC: 30243R1 Transfusion of Nonautologous Platelets into Central Vein, Percutaneous Approach (ICD-10-PCS; 2018-09-10)
PROC: 30243N1 Transfusion of Nonautologous Red Blood Cells into Central Vein, Percutaneous Approach (ICD-10-PCS; 2018-09-10)
DX: K31.811 Angiodysplasia of stomach and duodenum with bleeding (principal); J96.01 Acute respiratory failure with hypoxia; I21.A1 Myocardial infarction type 2; J18.9 Pneumonia, unspecified organism; D62 Acute posthemorrhagic anemia; C34.11 Malignant neoplasm of upper lobe, right bronchus or lung; N17.9 Acute kidney failure, unspecified; C78.7 Secondary malignant neoplasm of liver and intrahepatic bile duct; Z51.5 Encounter for palliative care; I95.9 Hypotension, unspecified; E86.1 Hypovolemia; D69.6 Thrombocytopenia, unspecified; E11.9 Type 2 diabetes mellitus without complications; I35.0 Nonrheumatic aortic (valve) stenosis; K29.81 Duodenitis with bleeding; K29.71 Gastritis, unspecified, with bleeding; R53.81 Other malaise; E78.5 Hyperlipidemia, unspecified; R01.1 Cardiac murmur, unspecified; I10 Essential (primary) hypertension; E87.70 Fluid overload, unspecified; R11.0 Nausea; R10.13 Epigastric pain; F17.210 Nicotine dependence, cigarettes, uncomplicated; Z79.84 Long term (current) use of oral hypoglycemic drugs; Z95.0 Presence of cardiac pacemaker; Z88.6 Allergy status to analgesic agent; Z88.5 Allergy status to narcotic agent; Z96.653 Presence of artificial knee joint, bilateral; Z79.899 Other long term (current) drug therapy; Z28.20 Immunization not carried out because of patient decision for unspecified reason
CPT/HCPCS: 32405; 36415; 36430; 71045; 71046; 71260; 77012; 80048; 80053; 82272; 82947; 83735; 83880; 84484; 85014; 85018; 85025; 85027; 85049; 85610; 86850; 86900; 86901; 86923; 88305; 88341; 88342; 93005; 93010; 93308; 93321; 94640; 94760; 96361; 96374; 96375; 97110; 97162; 97530; 99285-25; C1751; C9113; G0378; J1940; J2405; J2543; J3010; J7030; J7050; J7120; P9016; P9035; P9053; Q9967